=== PATIENT | female | born 1985 | race Caucasian/White ===

== ENCOUNTER 2020-03-17 12:01 | Outpatient (CLI) | payer OTHER | END 2020-03-17 23:59 | disposition home or self-care (01) | LOC: EDSEX → STAR 12:01 | PROVIDERS: ATTEND Specialist | DX: Z01.818 Encounter for other preprocedural examination (principal); Z11.59 Encounter for screening for other viral diseases | CPT/HCPCS: 36415; 87635 ==

== ENCOUNTER 2020-03-21 10:02 | Inpatient (IN) | payer MEDICARE, OTHER ==
[~2020-03-21] VITALS: Ht 167.6 cm; Wt 66.6 kg
[2020-03-21 12:44] VITALS: BP 134/66
[2020-03-21] MEDS ORDERED: LACTATED RINGERS 1,000 ML IV SCH (12:46)
[2020-03-21] MEDS ORDERED: CHLORHEXIDINE 15 ML UDC MM STA (12:47)
[2020-03-21] MEDS ORDERED: CHLORHEXIDINE 15 ML UDC ONE (12:50)
[2020-03-21] MEDS ORDERED: MULTIVITAMIN (13:24)
[2020-03-21] MEDS ORDERED: CEFOTETAN PMX 2GM/50ML 50 ML IV STA (13:34)
[2020-03-21 13:35] LABS: BASOPHILS # (AUTO) 0.04 x10^3/uL (0-0.1); BASOPHILS % (AUTO) 1 % (0-1); EOSINOPHILS # (AUTO) 0.11 x10^3/uL (0-0.4); EOSINOPHILS % (AUTO) 2 % (1-7); LYMPHOCYTES % (AUTO) 23 % (22-44); MD NO; MEAN CORPUSCULAR HEMOGLOBIN 28.1 pg (27.0-34.8); MEAN CORPUSCULAR HGB CONC 32.2 g/dL (32.4-35.8); MEAN CORPUSCULAR VOLUME 87.2 fL (80-100); MONOCYTES # (AUTO) 0.26 x10^3/uL (0.2-0.8); MONOCYTES % (AUTO) 6 % (2-9); NEUTROPHILS # (AUTO) 3.22 x10^3/uL (1.8-6.8); NEUTROPHILS % (AUTO) 68 % (42-75); PLATELET COUNT 246 x10^3/uL (130-400); RED CELL DISTRIBUTION WIDTH 13.7 % (9.6-15.2)
[2020-03-21 13:46] LABS: INTERNATIONAL NORMALIZED RATIO 1.06 (0.93-1.1); PROTHROMBIN TIME 10.9 Seconds (9.6-11.5)
[2020-03-21 13:48] LABS: ALANINE AMINOTRANSFERASE 18 U/L (12-78); ALBUMIN 4.6 g/dL (3.4-5.0); ANION GAP 7 mmol/L (5-15); CALCIUM 8.7 mg/dL (8.5-10.1); CHLORIDE 111 mmol/L (98-107); CREATININE 0.61 mg/dL (0.55-1.02)
[2020-03-21 13:50] LABS: ALKALINE PHOSPHATASE 63 U/L (45-117); BILIRUBIN,TOTAL 1.2 mg/dL (0.2-1.0); TOTAL PROTEIN 8.4 g/dL (6.4-8.2)
[2020-03-21 14:25] LABS: HCG UR SG 1.026 (1.003-1.030)
[2020-03-21] MEDS ORDERED: OXYTOCIN 10 UNITS/ML, 1ML ONE (16:21)
[2020-03-21] MEDS ORDERED: MIDAZOLAM 1 MG/ML, 2ML ONE (16:34)
[2020-03-21] MEDS ORDERED: FENTANYL PF 250 MCG/5ML ONE (16:34)
[2020-03-21] MEDS ORDERED: ONDANSETRON 2MG/ML, 2ML ONE (16:35)
[2020-03-21] MEDS ORDERED: CEFAZOLIN 1,000 MG ONE (16:35)
[2020-03-21] MEDS ORDERED: DEXAMETHASONE 4 MG/ML, 1ML ONE (16:35)
[2020-03-21] MEDS ORDERED: ROCURONIUM 10 MG/ML,10ML ONE (16:35)
[2020-03-21] MEDS ORDERED: SUCCINYLCHOLINE 20 MG/ML, 10ML ONE (16:35)
[2020-03-21] MEDS ORDERED: KETOROLAC 30 MG/1 ML ONE (16:35)
[2020-03-21] MEDS ORDERED: PROPOFOL 10 MG/ML, 20ML ONE (16:35)
[2020-03-21] MEDS ORDERED: HYDROmorphone 1 MG/ML, 1ML INJ IV PRN (17:00)
[2020-03-21] MEDS ORDERED: OXYcodone 5 MG/5 ML ORAL.SOL UDC PO PRN (17:00)
[2020-03-21] MEDS ORDERED: ALBUTEROL SULFATE 2.5 MG/3 ML NPPB PRN (17:00)
[2020-03-21] MEDS ORDERED: KETOROLAC 30 MG/1 ML IV PRN (17:00)
[2020-03-21] MEDS ORDERED: LABETALOL 5MG/ML, 20ML IV PRN (17:00)
[2020-03-21] MEDS ORDERED: METOCLOPRAMIDE 5 MG/ML, 2ML IV PRN (17:00)
[2020-03-21] MEDS ORDERED: ONDANSETRON 2MG/ML, 2ML IVPush PRN (17:00)
[2020-03-21] MEDS ORDERED: hydrALAzine 20 MG/ML, 1ML IV PRN (17:00)
[2020-03-21] MEDS ORDERED: MEPERIDINE/PF 25MG/0.5ML IVPush PRN (17:00)
[2020-03-21] MEDS ORDERED: PROMETHAZINE 25 MG/ML, 1ML IV PRN (17:00)
[2020-03-21] MEDS ORDERED: DIAZEPAM 5 MG/ML, 2ML IV PRN ×2 (17:00)
[2020-03-21] MEDS ORDERED: OXYTOCIN 10 UNITS/ML, 1ML IM ONE (17:16)
[2020-03-21] MEDS ORDERED: THROMBIN 20,000 UNIT VIAL TP ONE ×2 (17:39→17:42)
[2020-03-21] MEDS ORDERED: INTERCEED 3 X 4 INCH DRESSING ONE (18:00)
[2020-03-21] MEDS ORDERED: FENTANYL PF 100 MCG/2ML ONE (18:40)
[2020-03-21] MEDS ORDERED: OXYcodone 5 MG/5 ML ORAL.SOL UDC ONE (18:41)
[2020-03-21] MEDS: FENTANYL PF 100 MCG/2ML IV PRN ×2 (18:44→19:36)
[2020-03-21] MEDS ORDERED: HYDROmorphone 1 MG/ML, 1ML INJ ONE (20:07)
[2020-03-21] MEDS: KETOROLAC 30 MG/1 ML IVPush SCH (21:13)
[2020-03-22] MEDS: POTASSIUM CHLORIDE 20 MEQ in D5%-0.45% NACL 1,000 ML IV SCH ×3 (00:12→16:34)
[2020-03-22 02:51] VITALS: BP 119/71
[2020-03-22] MEDS: KETOROLAC 30 MG/1 ML IVPush SCH ×4 (02:52→20:56)
[2020-03-22 05:43] LABS: BASOPHILS % (AUTO) 0 % (0-1); EOSINOPHILS % (AUTO) 0 % (1-7); LYMPHOCYTES # (AUTO) 0.68 x10^3/uL (1-3.4); LYMPHOCYTES % (AUTO) 5 % (22-44); MD NO; MEAN CORPUSCULAR HEMOGLOBIN 28.5 pg (27.0-34.8); MEAN CORPUSCULAR HGB CONC 32.7 g/dL (32.4-35.8); MEAN CORPUSCULAR VOLUME 87.2 fL (80-100); MEAN PLATELET VOLUME 9.5 fL (7.4-10.4); MONOCYTES # (AUTO) 0.58 x10^3/uL (0.2-0.8); MONOCYTES % (AUTO) 4 % (2-9); NEUTROPHILS # (AUTO) 12.13 x10^3/uL (1.8-6.8); NEUTROPHILS % (AUTO) 91 % (42-75); PLATELET COUNT 222 x10^3/uL (130-400); RED BLOOD COUNT 3.48 x10^6/uL (3.82-5.3); RED CELL DISTRIBUTION WIDTH 13.8 % (9.6-15.2)
[2020-03-22 05:53] LABS: CHLORIDE 111 mmol/L (98-107)
[2020-03-22 05:57] LABS: ANION GAP 5 mmol/L (5-15); CALCIUM 7.8 mg/dL (8.5-10.1); CREATININE 0.57 mg/dL (0.55-1.02)
[2020-03-22 07:44] VITALS: BP 93/54
[2020-03-22 13:00] VITALS: BP 112/62
[2020-03-22 18:38] VITALS: BP 95/48
[2020-03-23 00:57] VITALS: BP 89/54
[2020-03-23] MEDS: POTASSIUM CHLORIDE 20 MEQ in D5%-0.45% NACL 1,000 ML IV SCH ×2 (02:03→15:33)
[2020-03-23] MEDS: KETOROLAC 30 MG/1 ML IVPush SCH ×4 (02:28→21:30)
[2020-03-23 05:36] LABS: ANION GAP 4 mmol/L (5-15); CALCIUM 7.4 mg/dL (8.5-10.1); CHLORIDE 112 mmol/L (98-107)
[2020-03-23 05:38] LABS: CREATININE 0.45 mg/dL (0.55-1.02)
[2020-03-23 05:39] LABS: BASOPHILS # (AUTO) 0.02 x10^3/uL (0-0.1); BASOPHILS % (AUTO) 0 % (0-1); EOSINOPHILS % (AUTO) 2 % (1-7); LYMPHOCYTES # (AUTO) 0.81 x10^3/uL (1-3.4); LYMPHOCYTES % (AUTO) 12 % (22-44); MD NO; MEAN CORPUSCULAR HEMOGLOBIN 28.4 pg (27.0-34.8); MEAN CORPUSCULAR HGB CONC 32.6 g/dL (32.4-35.8); MEAN CORPUSCULAR VOLUME 87.1 fL (80-100); MEAN PLATELET VOLUME 9.5 fL (7.4-10.4); MONOCYTES # (AUTO) 0.42 x10^3/uL (0.2-0.8); MONOCYTES % (AUTO) 6 % (2-9); NEUTROPHILS # (AUTO) 5.52 x10^3/uL (1.8-6.8); NEUTROPHILS % (AUTO) 80 % (42-75); PLATELET COUNT 162 x10^3/uL (130-400); RED CELL DISTRIBUTION WIDTH 13.9 % (9.6-15.2)
[2020-03-23 09:30] VITALS: BP 112/71
[2020-03-23 14:55] VITALS: BP 97/66
[2020-03-23] MEDS: OXYcodone/APAP 5/325MG TABLET PO PRN (17:45)
[2020-03-23] MEDS ORDERED: POTASSIUM CHLORIDE 20 MEQ in D5%-0.45% NACL 1,000 ML IV SCH (19:42)
[2020-03-23 21:26] VITALS: BP 99/65
[2020-03-24] VITALS (8 sets, daily range): BP systolic 96–115; BP diastolic 60–75
[2020-03-24] MEDS: OXYcodone/APAP 5/325MG TABLET PO PRN ×2 (00:01→14:51)
[2020-03-24] MEDS: KETOROLAC 30 MG/1 ML IVPush SCH ×2 (03:11→09:26)
[2020-03-24 05:10] LABS: MEAN CORPUSCULAR HEMOGLOBIN 28.5 pg (27.0-34.8); MEAN CORPUSCULAR HGB CONC 32.7 g/dL (32.4-35.8); MEAN CORPUSCULAR VOLUME 87.2 fL (80-100); MEAN PLATELET VOLUME 8.8 fL (7.4-10.4); PLATELET COUNT 162 x10^3/uL (130-400); RED BLOOD COUNT 2.57 x10^6/uL (3.82-5.3); RED CELL DISTRIBUTION WIDTH 13.9 % (9.6-15.2)
[2020-03-24 05:54] LABS: BASOPHILS # (AUTO) 0.02 x10^3/uL (0-0.1); BASOPHILS % (AUTO) 1 % (0-1); EOSINOPHILS # (AUTO) 0.44 x10^3/uL (0-0.4); EOSINOPHILS % (AUTO) 10 % (1-7); LYMPHOCYTES # (AUTO) 1.17 x10^3/uL (1-3.4); LYMPHOCYTES % (AUTO) 26 % (22-44); MD SCAN; MONOCYTES # (AUTO) 0.29 x10^3/uL (0.2-0.8); MONOCYTES % (AUTO) 7 % (2-9); NEUTROPHILS # (AUTO) 2.58 x10^3/uL (1.8-6.8); NEUTROPHILS % (AUTO) 57 % (42-75)
[2020-03-24] MEDS ORDERED: ACETAMINOPHEN 325 MG TABLET PO ONE (10:30)
[2020-03-24] MEDS ORDERED: DIPHENHYDRAMINE 25 MG CAPSULE PO ONE (10:30)
[2020-03-24] MEDS ORDERED: OXYcodone/APAP 5/325MG PO (10:50)
== END 2020-03-24 15:52 | disposition home or self-care (01) | DRG 743 ==
LOC: ORIP 12:02 → EDSEX 12:02 → 4NE 20:45 → DCLOUNGE 03-24 15:44
PROVIDERS: ADMIT Specialist; ATTEND Specialist
PROC: 0UB90ZZ Excision of Uterus, Open Approach (ICD-10-PCS; principal; 2020-03-21 15:00)
PROC: 30233N1 Transfusion of Nonautologous Red Blood Cells into Peripheral Vein, Percutaneous Approach (ICD-10-PCS; 2020-03-24)
DX: D25.9 Leiomyoma of uterus, unspecified (principal); D64.9 Anemia, unspecified; D72.829 Elevated white blood cell count, unspecified
CPT/HCPCS: 36415; 71045; 74018; 76705; 80048; 80053; 81025; 85025; 85610; 85730; 86304; 86850; 86900; 86923; 88305; 88307; 93005; G0378; J0690; J1100; J1170; J1885; J2250; J2270; J2405; J2704; J3010; J3480; C1765; J0330; J2590; J3490; J7120; P9016; Q0163

== ENCOUNTER 2021-01-05 20:33 | Emergency (ER) | payer OTHER ==
[~2021-01-05] VITALS: Ht 165.1 cm; Wt 65.7 kg
[~2021-01-05 20:33] MED LIST: MULTIVITAMIN; OXYcodone/APAP 5/325MG PO
--- NOTE | 2021-01-05 23:01 | NUR ---
PT PRESENTS WITH LEFT EYE PAIN AFTER "SOMETHING BLEW INTO IT", PAIN HAS GOTTEN BETTER WHILE WAITING IN THE LOBBY PER PT. RESTING COMFORTABLY ON CHAIR, HOOKED TO MONITOR
[2021-01-05] MEDS ORDERED: PROPARACAINE OPHTH 0.5%, 15ML ONE (23:11)
[2021-01-05] MEDS ORDERED: FLUORESCEIN OPHTHALMIC 1 MG STRIP ONE (23:11)
[2021-01-05] MEDS ORDERED: PROPARACAINE OPHTH 0.5%, 15ML EACHEYE ONE (23:30)
[2021-01-05] MEDS ORDERED: FLUORESCEIN OPHTHALMIC 1 MG STRIP EACHEYE ONE (23:30)
--- NOTE | 2021-01-05 23:30 | NUR ---
ERP AT BEDSIDE, AMINISTERED EYE GTTS
--- NOTE | 2021-01-05 23:45 | NUR ---
Patient given discharge instructions and they have confirmed that they understand the instructions. Patient ambulatory with steady gait.
[2021-01-05 23:46] VITALS: BP 111/65
== END 2021-01-05 23:48 | disposition home or self-care (01) ==
LOC: ED 23:42
DX: H57.12 Ocular pain, left eye (principal)
CPT/HCPCS: 99283